=== PATIENT | male | born 1995 | race Caucasian/White ===

== ENCOUNTER 2019-12-09 06:20 | Emergency (ER) | payer OTHER ==
--- NOTE | 2019-12-09 07:41 | ED Physician Documentation ---
PD HPI UPPER EXT INJURY - Stated complaint Stated Complaint: RT MIDDLE FINGER INJ - Chief complaint Chief Complaint: General - History obtained from History obtained from: Patient - History of Present Illness Location: Right, Finger (middle) Type of injury: Blunt / blow Where injury occurred: Work Timing - onset: Today Timing - duration: Minutes Timing - details: Abrupt onset, Still present Improved by: Rest, Immobilization Worsened by: Moving, Palpating Associated symptoms: No: Weakness, Numbness, Tingling, Swelling, Discolored Contributing factors: No: Anticoagulated Similar symptoms before: Has not had sx before Recently seen: Not recently seen - Additonal information Additional information: 23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 He has some bleeding to the dorsum of the finger but he is able to flex and extend at the distal interphalangeal joint. He was asked by his man to come to the emergency department for evaluation. He is up-to-date on his immunizations. Review of Systems Constitutional: denies: Fever, Chills Throat: denies: Sore throat Respiratory: denies: Cough GI: denies: Vomiting PD PAST MEDICAL HISTORY - Past Medical History Past Medical History: No - Past Surgical History Past Surgical History: Yes - Present Medications Home Medications: Ambulatory Orders Medication Instructions Recorded Confirmed No Known Home Medications 12/09/19 12/09/19 - Allergies Allergies/Adverse Reactions: Allergies Allergy/AdvReac Type Severity Reaction Status Date / Time No Known Drug Allergies Allergy Verified 12/09/19 06:30 - Social History Does the pt smoke?: Yes Smoking Status: Current every day smoker Does the pt drink ETOH?: Yes ETOH Use: Beer Does the pt have substance abuse?: No - Immunizations Immunizations are current?: Yes - POLST Patient has POLST: No PD ED PE NORMAL - Vitals Vital signs reviewed: Yes (Hypertensive) - General General: Alert and oriented X 3, No acute distress, Well developed/nourished - HEENT HEENT: Atraumatic, PERRL, EOMI - Respiratory Respiratory: No respiratory distress - Derm Derm: Normal color, Warm and dry, No rash - Extremities Extremities: No deformity, Other (Over the distal right middle finger over the DIP joint dorsally is an abrasion and swelling. There is no subungual hematoma. He is able to flex and extend at the DIP and at the PIP. 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, No motor deficit, No sensory deficit, Normal speech Eye Opening: Spontaneous Motor: Obeys Commands Verbal: Oriented GCS Score: 15 - Psych Psych: Normal mood, Normal affect Results - Vitals Vitals: Vital Signs - 24 hr 12/09/19 06:27 Temperature 36.6 C Heart Rate 63 Respiratory 16 Rate Blood Pressure 141/72 H O2 Saturation 99 Oxygen O2 Source Room air - Rads (name of study) Right hand Radiology: Prelim report reviewed (Impression: Third digit tuft fracture), EMP read indepedently, See rad report PD MEDICAL DECISION MAKING - ED course Complexity details: reviewed results, re-evaluated patient, considered differential, d/w patient ED course: 23-year-old male placed into a finger cage for protection of the distal phalange of the right middle finger. He does have a subtle tuft fracture in this is likely of little consequence. Departure - Departure Disposition: 01 Home, Self Care Clinical Impression: Crushing injury of finger of right hand Condition: Stable Instructions: ED Crush Injury Finger No Fx Follow-Up: [facility]IL[facility] Jacksonsariah Jean Baptiste [Provider Group]
[2019-12-09 08:06] VITALS: BP 141/92
--- NOTE | 2019-12-09 08:06 | XRAY Report ---
PROCEDURE: Hand 3 View RT INDICATIONS: middle finger distal crush injury TECHNIQUE: 3 views of the hand(s) acquired. COMPARISON: None FINDINGS: Bones: Nondisplaced lucency along the lateral aspect of the distal third cortical tuft. No suspicious bony lesions. Soft tissues: No suspicious soft tissue calcifications. IMPRESSION: Distal tuft nondisplaced lucency suggestive of fracture. Reviewed by: Mala Zayas MD on 12/09/2019 8:04 AM PDT Approved by: Mala Zayas MD on 12/09/2019 8:04 AM PDT Station ID: [id number]
== END 2019-12-09 08:09 | disposition home or self-care (01) ==
LOC: ED 06:20
DX: S62.632A Displaced fracture of distal phalanx of right middle finger, initial encounter for closed fracture (principal); W23.1XXA Caught, crushed, jammed, or pinched between stationary objects, initial encounter; Y93.89 Activity, other specified; Y92.89 Other specified places as the place of occurrence of the external cause; Y99.1 Military activity; F17.200 Nicotine dependence, unspecified, uncomplicated
CPT/HCPCS: 99282; 99283

== ENCOUNTER 2020-04-22 21:23 | Emergency (ER) | payer OTHER ==
--- NOTE | 2020-04-22 21:31 | ED Physician Documentation ---
PD HPI ABD PAIN - Stated complaint Stated Complaint: LOW ABD PX - History obtained from History obtained from: Patient - History of Present Illness Timing - onset: How many days ago (3-4) Timing - duration: Days (3-4) Timing - details: Gradual onset, Still present, Waxing and waning Quality: Aching, Pain Location: RLQ Radiation: Lower back. No: Chest, , Right flank Improved by: Laying still. No: Eating, BM Worsened by: Moving. No: Eating, Breathing Associated symptoms: Nausea. No: Fever, Vomiting, Diarrhea, Constipation, Dysuria, Testicular pain Similar symptoms before: Has not had sx before Recently seen: Not recently seen Review of Systems Constitutional: denies: Fever, Chills Nose: denies: Rhinorrhea / runny nose, Congestion Throat: denies: Sore throat Respiratory: denies: Cough GI: reports: Abdominal Pain, Nausea. denies: Abdominal Swelling, Vomiting, Constipation, Diarrhea, Bloody / black stool : denies: Dysuria, Frequency, Discharge Neurologic: denies: Near syncope PD PAST MEDICAL HISTORY - Past Medical History Past Medical History: No GI: None - Past Surgical History Past Surgical History: No - Present Medications Home Medications: Ambulatory Orders Medication Instructions Recorded Confirmed Docusate Sodium 100Mg Capsule 200 mg PO DAILY #20 cap 04/22/20 [Colace 100Mg Capsule] HYDROcod/ACETAM 5/325 [[place] 5/325] 1 ea PO Q6H PRN #12 tab 04/22/20 Naproxen Sodium [Anaprox Ds] 550 mg PO BID #20 tab 04/22/20 - Allergies Allergies/Adverse Reactions: Allergies Allergy/AdvReac Type Severity Reaction Status Date / Time No Known Drug Allergies Allergy Verified 12/09/19 06:30 - Social History Does the pt smoke?: Yes Smoking Status: Current every day smoker Does the pt drink ETOH?: Yes Does the pt have substance abuse?: No - Immunizations Immunizations are current?: Yes - POLST Patient has POLST: No PD ED PE NORMAL - Vitals Vital signs reviewed: Yes - General General: Alert and oriented X 3, No acute distress, Well developed/nourished - HEENT HEENT: Pharynx benign - Neck Neck: Supple, no meningeal sign, No adenopathy - Cardiac Cardiac: RRR, No murmur - Respiratory Respiratory: Clear bilaterally - Abdomen Abdomen: Normal bowel sounds, Soft, Non distended, No organomegaly, Other (tender RLQ with some mild local guarding, no percussion tenderness. There is some mild rebound. No referred tenderness from rest of abd. ) - Male Male : Deferred, Other (no inguinal hernias, nodes, nor tenderness. ) - Rectal Rectal: Deferred - Back Back: No CVA TTP - Derm Derm: Normal color, Warm and dry - Neuro Neuro: Alert and oriented X 3, No motor deficit, Normal speech Results - Vitals Vitals: Vital Signs - 24 hr 04/22/20 04/22/20 04/22/20 21:32 21:59 22:05 Temperature 35.7 C L Heart Rate 75 64 Respiratory 16 16 15 Rate Blood Pressure 129/79 132/80 H O2 Saturation 100 100 04/22/20 04/22/20 04/22/20 22:37 23:14 23:22 Temperature Heart Rate 64 60 Respiratory 15 16 15 Rate Blood Pressure 136/73 H 115/72 O2 Saturation 100 100 Oxygen O2 Source Room air - Labs Labs: Laboratory Tests 04/22/20 04/22/20 04/22/20 21:30 21:50 21:50 WBC 9.4 RBC 4.77 Hgb 14.6 Hct 43.7 MCV 91.6 MCH 30.6 MCHC 33.4 RDW 11.9 L Plt Count 383 MPV 10.4 Neut # (Auto) 4.8 Lymph # (Auto) 3.0 [place] # (Auto) 1.3 H Eos # (Auto) 0.2 Baso # (Auto) 0.1 Absolute Nucleated RBC 0.00 Nucleated RBC % 0.0 Sodium 138 Potassium 4.2 Chloride 103 Carbon Dioxide 25 Anion Gap 10.0 BUN 14 Creatinine 0.9 Estimated GFR (MDRD) 102 Glucose 91 Calcium 10.3 Total Bilirubin 0.5 AST 18 ALT 16 Alkaline Phosphatase 98 Total Protein 8.4 H Albumin 5.0 Globulin 3.4 Albumin/Globulin Ratio 1.5 Lipase 42 Urine Color YELLOW Urine Clarity CLEAR Urine pH 6.0 Ur Specific [place] >=1.030 H Urine Protein NEGATIVE Urine Glucose (UA) NEGATIVE Urine Ketones NEGATIVE Urine Occult Blood SMALL H Urine Nitrite NEGATIVE Urine Bilirubin NEGATIVE Urine Urobilinogen 1 (NORMAL) Ur Leukocyte Esterase NEGATIVE Urine RBC 0-5 Urine WBC 0-3 Ur Squamous Epith Cells NONE SEEN Urine Bacteria None Seen Urine Mucus Few Strands Ur Microscopic Review INDICATED Urine Culture Comments NOT INDICATED - Rads (name of study) abd/pelvic CT Radiology: Prelim report reviewed (prominent lymph nodes, particularly RLQ. Normal appendix. moderate stool burden. ), See rad report PD MEDICAL DECISION MAKING - ED course Complexity details: considered differential (No diarrhea nor UC/crohns type symptoms nor history. Does have mesenteric nodes RLQ. Presume this is cause of symptoms. Presume will improve with nsaids/time. ), d/w patient Departure - Departure Disposition: 01 Home, Self Care Clinical Impression: Right lower quadrant abdominal pain, Mesenteric adenitis Condition: Stable Record reviewed to determine appropriate education?: Yes Instructions: ED Adenitis Mesenteric Follow-Up: AMILCAR Jean Baptiste [Provider Group] Prescriptions: Naproxen Sodium [Anaprox Ds] 550 mg PO BID #20 tab Docusate Sodium 100Mg Capsule [Colace 100Mg Capsule] 200 mg PO DAILY #20 cap HYDROcod/ACETAM 5/325 [[place] 5/325] 1 ea PO Q6H PRN #12 tab PRN Reason: Pain Comments: Your CT scan showed normal appendix and no signs of kidney stones. The report does comment on some prominent lymph nodes particularly in the right lower quadrant and this may be causing your pain. This can be from an inflammatory condition or a viral type infectious. No signs of bacterial type infection at this point. We will treat this with anti-inflammatories regularly for a week to 10 days. To that add a stool softener as well to minimize any stretch irritation in the intestine. To that add Tylenol every 4-6 hours or hydrocodone if needed for worse pain. Stay well-hydrated. Regular diet is okay. Follow-up with your primary care in the next 3 to 4 days, call for an appointment. I would anticipate improvement over the next several days and resolution by 3 to 5 days most commonly with this. Follow-up if not improved in that timeframe or if recurrent episodes in the near future return to the ER if worse. Discharge Date/Time: 04/22/20 23:26
[2020-04-22] MEDS ORDERED: ONDANSETRON 4 MG/2 ML VIAL IVP STA (21:45)
[2020-04-22] MEDS ORDERED: KETOROLAC 15 MG/ML VIAL IVP STA (21:45)
[2020-04-22 21:57] LABS: BASOPHILS # (AUTO) 0.1 10^3/uL (0.0-0.1); BASOPHILS % (AUTO) 0.8 %; EOSINOPHILS # (AUTO) 0.2 10^3/uL (0.0-0.7); EOSINOPHILS % (AUTO) 2.3 %; HGB - HEMOGLOBIN 14.6 g/dL (14.0-18.0); LYMPHOCYTES % (AUTO) 31.3 %; MEAN CORPUSCULAR HEMOGLOBIN 30.6 pg (27.0-31.0); MEAN CORPUSCULAR HGB CONC 33.4 g/dL (32.0-36.0); MEAN CORPUSCULAR VOLUME 91.6 fL (80.0-94.0); MEAN PLATELET VOLUME 10.4 fL (7.4-11.4); MONOCYTES # (AUTO) 1.3 10^3/uL (0.0-1.0); MONOCYTES % (AUTO) 13.5 %; NEUTROPHILS # (AUTO) 4.8 10^3/uL (1.5-6.6); NEUTROPHILS % (AUTO) 51.3 %; PLT - PLATELET COUNT 383 10^3/uL (130-450); RED BLOOD COUNT 4.77 10^6/uL (4.70-6.10); RED CELL DISTRIBUTION WIDTH 11.9 % (12.0-15.0); WHITE BLOOD COUNT 9.4 x10^3/uL (4.8-10.8)
[2020-04-22 22:05] LABS: BILIRUBIN,URINE NEGATIVE (NEGATIVE); GLUCOSE, URINE (UA) NEGATIVE (NEGATIVE); KETONES,URINE (UA) NEGATIVE (NEGATIVE); LEUKOCYTE ESTERASE, URINE NEGATIVE (NEGATIVE); NITRITE,URINE NEGATIVE (NEGATIVE); OCCULT BLOOD,URINE SMALL (NEGATIVE); PROTEIN,URINE NEGATIVE (NEGATIVE); UROBILINOGEN,URINE 1 (NORMAL) E.U./dL (NORMAL)
[2020-04-22 22:06] LABS: CLARITY,URINE CLEAR (CLEAR)
[2020-04-22 22:13] LABS: ALBUMIN/GLOBULIN RATIO 1.5 (1.0-2.2); BILIRUBIN,TOTAL 0.5 mg/dL (0.2-1.0); CALCIUM 10.3 mg/dL (8.5-10.3); CREATININE 0.9 mg/dL (0.6-1.2); TOTAL PROTEIN 8.4 g/dL (6.7-8.2)
[2020-04-22 22:17] LABS: BACTERIA,URINE None Seen /HPF (None Seen); MUCUS,URINE Few Strands; RBC,URINE 0-5 /HPF (0-5); SQUAMOUS EPITHELIAL CELL,UR NONE SEEN (<= Few)
[2020-04-22] MEDS ORDERED: IOVERSOL 320 100 ML VIAL IVP ONE ×2 (22:26→22:39)
[2020-04-22] MEDS ORDERED: DOCUSATE SODIUM 100 MG CAPSULE PO STA (23:04)
[2020-04-22 23:14] VITALS: BP 115/72
[2020-04-22] MEDS ORDERED: ACETAMINOPHEN 325 MG TABLET PO STA (23:16)
--- NOTE | 2020-04-23 10:35 | CT Report ---
PROCEDURE: Abdomen/Pelvis W INDICATIONS: RLQ Abdominal pain, appendicitis suspected CONTRAST: IV CONTRAST: Optiray 320 ml: 100 PO CONTRAST: *NO PO CONTRAST TECHNIQUE: After the administration of nonionic IV contrast, 5 mm thick sections acquired from the diaphragms to the symphysis. 5 mm thick coronal and sagittal reformats were acquired. For radiation dose reducti on, the following was used: automated exposure control, adjustment of mA and/or kV according to jeniffer ent size. COMPARISON: None. FINDINGS: Image quality: Excellent. ABDOMEN: Lung bases: Lung bases are clear. Heart size is normal. Solid organs: Liver and spleen are normal in size and enhancement. Gallbladder is relatively collap sed at the time of this study. Biliary system is non dilated. Pancreas enhances normally. No adren al nodules. Kidneys demonstrate normal size and enhancement, without hydronephrosis. Peritoneum and bowel: In this patient with this given history, scrutiny is given to the appendix. Th e appendix is seen inferior to the cecum, as on series 6 images 22 through 25. No surrounding inflamm atory changes are seen. Bowel loops demonstrate normal wall thickness and caliber. No free fluid or air. A moderate amount of stool can be seen within the colon. Nodes and vessels: No retroperitoneal or mesenteric adenopathy by size criteria. A few prominent rig ht lower quadrant lymph nodes are noted. Aorta and inferior vena cava are normal in size. Miscellaneous: No ventral hernias. PELVIS: Genitourinary: Bladder wall thickness is normal. Miscellaneous: No inguinal hernias or adenopathy. Bones: No suspicious bony lesions. No vertebral body compression fractures. IMPRESSION: Normal appendix. A few prominent right lower quadrant lymph nodes are seen. Please consider mesenteric adenitis. There is a moderate amount of stool seen within the colon. Please correlate with clinical constipatio n. Note: No significant discrepancy from the preliminary report. Reviewed by: Abhi Valencia MD on 04/23/2020 9:34 AM [place] Approved by: Abhi Valencia MD on 04/23/2020 9:34 AM [facility] [place] Station ID: [id number]
== END 2020-04-22 23:26 | disposition home or self-care (01) ==
LOC: ED 21:23
DX: I88.0 Nonspecific mesenteric lymphadenitis (principal); F17.200 Nicotine dependence, unspecified, uncomplicated
CPT/HCPCS: 36415; 74177; 80053; 81001; 83690; 85025; 96374; 96375; 99284; A9270; Q9967; 81003; 87086

== ENCOUNTER 2020-10-06 08:00 | Outpatient (CLI) | payer OTHER | END 2020-10-06 23:59 | disposition home or self-care (01) | LOC: LAB.N 08:00 | PROVIDERS: ATTEND Nurse Practitioner | DX: U07.1 COVID-19 (principal) ==

== ENCOUNTER 2020-11-14 07:40 | Emergency (ER) | payer OTHER ==
[2020-11-14 10:27] LABS: BASOPHILS % (AUTO) 0.5 %; EOSINOPHILS # (AUTO) 0.1 10^3/uL (0.0-0.7); EOSINOPHILS % (AUTO) 1.8 %; HCT - HEMATOCRIT 44.5 % (42.0-52.0); HGB - HEMOGLOBIN 15.1 g/dL (14.0-18.0); LYMPHOCYTES # (AUTO) 2.4 10^3/uL (1.5-3.5); LYMPHOCYTES % (AUTO) 30.7 %; MEAN CORPUSCULAR HEMOGLOBIN 31.1 pg (27.0-31.0); MEAN CORPUSCULAR HGB CONC 33.9 g/dL (32.0-36.0); MEAN CORPUSCULAR VOLUME 91.6 fL (80.0-94.0); MEAN PLATELET VOLUME 10.3 fL (7.4-11.4); MONOCYTES # (AUTO) 0.9 10^3/uL (0.0-1.0); MONOCYTES % (AUTO) 10.9 %; NEUTROPHILS # (AUTO) 4.4 10^3/uL (1.5-6.6); NEUTROPHILS % (AUTO) 55.7 %; PLT - PLATELET COUNT 358 10^3/uL (130-450); RED BLOOD COUNT 4.86 10^6/uL (4.70-6.10); WHITE BLOOD COUNT 7.8 x10^3/uL (4.8-10.8)
[2020-11-14 10:42] LABS: ALBUMIN 5.1 g/dL (3.2-5.5); ALBUMIN/GLOBULIN RATIO 1.5 (1.0-2.2); BILIRUBIN,TOTAL 0.9 mg/dL (0.2-1.0); CALCIUM 9.7 mg/dL (8.5-10.3); CREATININE 0.9 mg/dL (0.6-1.2); POTASSIUM 3.9 mmol/L (3.5-5.0); TOTAL PROTEIN 8.5 g/dL (6.7-8.2)
[2020-11-14 11:27] VITALS: BP 131/79
--- NOTE | 2020-11-14 11:41 | ED Physician Documentation ---
History of Present Illness - Stated complaint Stated Complaint: MALE - Chief complaint Chief Complaint: Abd Pain - History obtained from History obtained from: Patient - History of Present Illness Timing: Today Pain level max: 0 Pain level now: 0 Improved by: nothing Worsened by: nothing - Additonal information Additional information: Patient is a 24-year-old male who states that he had a bowel movement today x1 that was bloody. Nothing makes it better or worse. Has never had similar symptoms previously. bright red blood. No abdominal pain. No recent travel. No recent antibiotics. No fevers. No chills. No camping. Currently asymptomatic. Review of Systems Constitutional: denies: Fever, Chills Nose: denies: Rhinorrhea / runny nose, Congestion Throat: denies: Sore throat GI: denies: Abdominal Pain, Nausea, Vomiting, Constipation, Diarrhea, Hematemesis : denies: Dysuria, Frequency, Hesitancy Skin: denies: Rash Musculoskeletal: denies: Neck pain, Back pain Neurologic: denies: Headache PD PAST MEDICAL HISTORY - Past Medical History Cardiovascular: None Respiratory: None Neuro: None Endocrine/Autoimmune: None GI: None : None HEENT: None Psych: None Musculoskeletal: None Derm: None - Past Surgical History Past Surgical History: No - Present Medications Home Medications: Ambulatory Orders Medication Instructions Recorded Confirmed Docusate Sodium 100Mg Capsule 200 mg PO DAILY #20 cap 04/22/20 [Colace 100Mg Capsule] HYDROcod/ACETAM 5/325 [[place] 5/325] 1 ea PO Q6H PRN #12 tab 04/22/20 Naproxen Sodium [Anaprox Ds] 550 mg PO BID #20 tab 04/22/20 - Allergies Allergies/Adverse Reactions: Allergies Allergy/AdvReac Type Severity Reaction Status Date / Time No Known Drug Allergies Allergy Verified 11/14/20 08:14 - Social History Does the pt smoke?: Yes Smoking Status: Current every day smoker Does the pt drink ETOH?: Yes Does the pt have substance abuse?: No - Immunizations Immunizations are current?: Yes - POLST Patient has POLST: No PD ED PE NORMAL - Vitals Vital signs reviewed: Yes - General General: Alert and oriented X 3, No acute distress - HEENT HEENT: Moist mucous membranes - Neck Neck: Supple, no meningeal sign - Cardiac Cardiac: RRR - Respiratory Respiratory: No respiratory distress, Clear bilaterally - Abdomen Abdomen: Normal bowel sounds, Soft, Non tender, Non distended - Rectal Rectal: Pt declined - Back Back: No CVA TTP, No spinal TTP - Derm Derm: Warm and dry - Extremities Extremities: No edema - Neuro Neuro: Alert and oriented X 3 - Psych Psych: Normal mood, Normal affect Results - Vitals Vitals: Vital Signs - 24 hr 11/14/20 11/14/20 08:12 11:27 Temperature 36.4 C L 36.2 C L Heart Rate 65 57 L Respiratory 14 18 Rate Blood Pressure 99/71 131/79 H O2 Saturation 99 100 Oxygen O2 Source Room air - Labs Labs: Laboratory Tests 11/14/20 11/14/20 10:21 10:21 WBC 7.8 RBC 4.86 Hgb 15.1 Hct 44.5 MCV 91.6 MCH 31.1 H MCHC 33.9 RDW 12.0 Plt Count 358 MPV 10.3 Neut # (Auto) 4.4 Lymph # (Auto) 2.4 [place] # (Auto) 0.9 Eos # (Auto) 0.1 Baso # (Auto) 0.0 Absolute Nucleated RBC 0.00 Nucleated RBC % 0.0 Sodium 138 Potassium 3.9 Chloride 102 Carbon Dioxide 24 Anion Gap 12.0 BUN 11 Creatinine 0.9 Estimated GFR (MDRD) 102 Glucose 87 Calcium 9.7 Total Bilirubin 0.9 AST 23 ALT 22 Alkaline Phosphatase 94 Total Protein 8.5 H Albumin 5.1 Globulin 3.4 Albumin/Globulin Ratio 1.5 Lipase 35 PD MEDICAL DECISION MAKING - ED course Complexity details: reviewed results, considered differential, d/w patient ED course: No significant lab abnormalities. Abdomen soft, nontender nondistended on examination. No indication for CT imaging. Patient was unable to produce a stool sample here. He will follow up with his doctor if his symptoms continue. Patient is very well-appearing, nontoxic. Afebrile. Patient counseled regarding signs and symptoms for which I believe and urgent re-evaluation would be necessary. Patient with good understanding of and agreement to plan and is comfortable going home at this time This document was made in part using voice recognition software. While efforts are made to proofread this document, sound alike and grammatical errors may occur. Departure - Departure Disposition: 01 Home, Self Care Clinical Impression: Hematochezia Condition: Good Instructions: ED Hematochezia Stable Follow-Up: your,doctor in 1 week [Other] Comments: Follow up with your doctor in 1 week for further care. Return if you worsen. You have a stool culture pending and if this is positive, we will call you for treatment. Your doctor may want to schedule a colonoscopy for you to check for any other abnormalities. Discharge Date/Time: 11/14/20 12:06
== END 2020-11-14 12:06 | disposition home or self-care (01) ==
LOC: ED 07:40
DX: K92.1 Melena (principal); F17.200 Nicotine dependence, unspecified, uncomplicated
CPT/HCPCS: 36415; 80053; 83690; 85025; 99283

== ENCOUNTER 2021-02-28 08:00 | Outpatient (CLI) | payer OTHER | END 2021-02-28 23:59 | LOC: LAB.N 08:00 | PROVIDERS: ATTEND Physician Assistant | DX: R05.9 Cough, unspecified (principal); R43.9 Unspecified disturbances of smell and taste; Z20.822 Contact with and (suspected) exposure to COVID-19 ==

== ENCOUNTER 2021-05-13 07:04 | Emergency (ER) | payer OTHER ==
[2021-05-13] MEDS ORDERED: ONDANSETRON ODT 4 MG TABLET TL STA (08:15)
--- NOTE | 2021-05-13 08:17 | ED Physician Documentation ---
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 He states that he ate some clams and he does not usually eat clams and following that he began to develop vomiting and diarrhea. He is feeling somewhat better now but still nauseous. Review of Systems Constitutional: denies: Fever Nose: denies: Congestion Throat: denies: Sore throat Cardiac: denies: Chest pain / pressure Respiratory: denies: Dyspnea, Cough GI: reports: Nausea, Vomiting, Diarrhea. denies: Abdominal Pain : denies: Dysuria, Frequency PD PAST MEDICAL HISTORY - Past Medical History Cardiovascular: None Respiratory: None Neuro: None Endocrine/Autoimmune: None GI: None : None HEENT: None Psych: None Musculoskeletal: None Derm: None - Past Surgical History Past Surgical History: No - Present Medications Home Medications: Ambulatory Orders Medication Instructions Recorded Confirmed Ondansetron Odt [Zofran] 4 mg TL Q6H PRN #10 tablet 05/13/21 - Allergies Allergies/Adverse Reactions: Allergies Allergy/AdvReac Type Severity Reaction Status Date / Time No Known Drug Allergies Allergy Verified 05/13/21 07:12 - Social History Does the pt smoke?: Yes Smoking Status: Current every day smoker Does the pt drink ETOH?: Yes Does the pt have substance abuse?: No - Immunizations Immunizations are current?: Yes - POLST Patient has POLST: No PD ED PE NORMAL - Vitals Vital signs reviewed: Yes (hypertensive mild ) - General General: Alert and oriented X 3, No acute distress, Well developed/nourished - HEENT HEENT: Atraumatic, PERRL, EOMI - Neck Neck: Supple, no meningeal sign, No bony TTP - Cardiac Cardiac: RRR, No murmur - Respiratory Respiratory: No respiratory distress, Clear bilaterally - Abdomen Abdomen: Normal bowel sounds, Soft, Non tender, Non distended, No organomegaly - Back Back: No CVA TTP, No spinal TTP - Derm Derm: Normal color, Warm and dry, No rash - Extremities Extremities: No deformity, No edema - Neuro Neuro: Alert and oriented X 3, 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, No motor deficit, No sensory deficit, Normal speech Eye Opening: Spontaneous Motor: Obeys Commands Verbal: Oriented GCS Score: 15 - Psych Psych: Normal mood, Normal affect Results - Vitals Vitals: Vital Signs - 24 hr 05/13/21 05/13/21 07:12 08:48 Temperature 36.9 C Heart Rate 86 75 Respiratory 19 19 Rate Blood Pressure 104/88 H 140/85 H O2 Saturation 99 99 Oxygen O2 Source Room air PD MEDICAL DECISION MAKING - ED course Complexity details: considered differential, d/w patient ED course: 25-year-old male with acute nausea and vomiting after eating clams last night has had improvement in his symptoms spontaneously but continues to have some nausea. He is administered Zofran sublingual and is able to pass a fluid chall enge. I have indicated the patient this does sound like food poisoning and I have offered to E scribe Zofran to [facility] in [place]. The patient is thankful for this and does not feel that he needs an IV laboratory studies or intravenous fluids. Departure - Departure Disposition: 01 Home, Self Care Clinical Impression: Gastroenteritis Instructions: ED Gastroenteritis Vs Food Poison Follow-Up: AMILCAR Jean Baptiste [Provider Group] Prescriptions: Ondansetron Odt [Zofran] 4 mg TL Q6H PRN #10 tablet PRN Reason: Nausea / Vomiting Comments: Jeff, it does not like you have had some food poisoning and the expectation is this will be a short-lived illness. I have E scribed some Zofran for nausea to the [facility] in [place]. In addition if you have excessive diarrhea it is okay to use Imodium which is available [id number]. The expectation is that your symptoms resolve within 1 to 5 days and the concern is for dehydration. Discharge Date/Time: 05/13/21 08:48
[2021-05-13 08:49] VITALS: BP 140/85
== END 2021-05-13 08:48 | disposition home or self-care (01) ==
LOC: ED 07:04
DX: K52.9 Noninfective gastroenteritis and colitis, unspecified (principal); F17.200 Nicotine dependence, unspecified, uncomplicated
CPT/HCPCS: 99282; Q0162